=== PATIENT | female | born 1965 | race Caucasian/White ===

== ENCOUNTER 2017-01-29 15:30 | Emergency (ER) | payer OTHER ==
--- NOTE | ~2017-01-29 | CR63 ---
[facility] A Service of [facility] RADIOLOGY TEXT RESULTS PATIENT: MICHELLE BLEDSOE LOCATION: [facility] : 67 UNIT #: [id number] AGE: [address]: Heide Bernardo APRN SEX: F ORDER DR: [id number] [facility] [address] [place], [place] [address] [id number] E MR#: [id number] Acc #: [id number] NAME: MICHELLE BLEDSOE : 1965 SEX: F STUDY DATE/TIME: 01/29/2017 17:59 UNIT: [facility] ROOM: STUDY DESCRIPTION: CR Chest 2 View Attending Physician: Heide Bernardo A.P.R.N. Ordering Physician: Ed Doctor [id number] [facility] Primary Care Physician: Bethel Celeste M.D. MEDICAL IMAGING REPORT This report is preliminary unless electronic signature is present EXAM Chest 2 views dated 01/29/2017 COMPARISON Chest 2 views dated 09/02/2015. HISTORY Fever, shortness of air, cough and congestion for 4 days. FINDINGS PA and lateral examination of the chest upright shows a good expansion of the parenchyma with a normal distribution of the pulmonary vascularity. There is no indication of congestion, effusion, infiltrate, tumor, or nodular density. The pleural reflections and diaphragmatic contours are normal. The cardiac silhouette and mediastinal anatomy is within normal limits. IMPRESSION Normal chest. Dictated by... Oscar Paredes M.D. THIS IS AN ELECTRONICALLY VERIFIED REPORT Oscar Paredes M.D. at 01/30/2017 9:01 PM CPR/mjs TD: 01/30/2017 08:59 JOB #: [id number] [facility] A Service [facility] RADIOLOGY TEXT RESULTS PATIENT: MICHELLE BLEDSOE LOCATION: [facility] : 67 UNIT #: [id number] AGE: [address]: Heide Bernardo APRN SEX: F ORDER DR: MEDICAL IMAGING REPORT Page 1 of 1 COPY
[~2017-01-29 15:30] MED LIST: ASPIRIN81 M2 PO; CLARITIN10 MG PO; DICLOFENAC PO; DICLOFENAC SODI25 MG PO; FLEXERIL10 MG PO; LORTAB 5/500 TA1 TA1 PO; LORTAB 5/500 TA1 TA2 PO; MULTI VITAMIN1 EACH PO; NORCO 7.5-3251 EACH PO; PREDNISONE10 MG/DOSE PO; ULTRAM PO
[2017-01-29 16:50] LABS: URINE SOURCE CLEAN CATCH
[2017-01-29 16:58] LABS: URINE APPEARANCE CLEAR; URINE BILIRUBIN NEG (NEG); URINE BLOOD 2+ (NEG); URINE COLOR DK YELLOW; URINE GLUCOSE NEG (NEG); URINE KETONE NEG (NEG); URINE LEUKOCYTE ESTERASE NEG (NEG); URINE NITRATE NEG (NEG); URINE PROTEIN NEG (NEG)
[2017-01-29 17:19] LABS: URBCS1 AUWI 0-2 /[HPF] (0-2); UWBCS1 AUWI 0-2 (0-5)
[2017-01-29 17:20] LABS: U HYALINE CASTS AUWI 0-2 /[LPF]; URINE CRYSTALS CALCIUM OXALATE /[HPF]; URINE SQUAMOUS EPITHELIAL CELL MODERATE /[HPF]
[2017-01-29 17:21] LABS: CULTURE INDICATED? NO
[2017-02-01 01:10] LABS: CHLAMYDIA TRACH Not Detected (Not Detected); N GONOR Not Detected (Not Detected)
== END 2017-01-29 19:21 | disposition home or self-care (01) ==
LOC: CED 15:30 → CFTX 15:30
PROVIDERS: Nurse Practitioner
DX: A59.01 Trichomonal vulvovaginitis (principal); J02.9 Acute pharyngitis, unspecified; J44.9 Chronic obstructive pulmonary disease, unspecified; F17.210 Nicotine dependence, cigarettes, uncomplicated; Z98.890 Other specified postprocedural states
CPT/HCPCS: 71020; 81003; 84703; 87210; 87491; 87591; 87651; 87808; 87905; 96372; 99284; J0696